=== PATIENT | female | born 1970 | race Caucasian/White ===

== ENCOUNTER 2017-12-26 09:32 | Outpatient (CLI) | payer OTHER ==
[~2017-12-26 09:32] MED LIST: ALBUTEROL17 GM IH; HYZAAR 100-251 UDTAB; HYZAAR 100/25 T1 TAB PO; SINGULAIR10 MG PO
== END 2017-12-26 11:55 | disposition home or self-care (01) ==
LOC: MRI 09:32
DX: M75.122 Complete rotator cuff tear or rupture of left shoulder, not specified as traumatic (principal)
CPT/HCPCS: 73221

== ENCOUNTER 2018-03-21 08:19 | Outpatient (CLI) | payer OTHER | END 2018-03-21 08:40 | disposition home or self-care (01) | LOC: RAD 08:19 | DX: M19.012 Primary osteoarthritis, left shoulder (principal) ==

== ENCOUNTER 2018-08-15 15:26 | Emergency (ER) | payer OTHER ==
[~2018-08-15] VITALS: Ht 175.3 cm; Wt 127.0 kg
[2018-08-15] MEDS ORDERED: CYTOMEL25 MCG (16:11)
[2018-08-15] MEDS ORDERED: SYNTHROID200 MCG (16:11)
[2018-08-15] MEDS ORDERED: NORVASC5 MG (16:11)
[2018-08-15] MEDS ORDERED: ZANAFLEX4 M1 (16:12)
[2018-08-15] MEDS ORDERED: GABAPENTIN100 MG (16:12)
[2018-08-15] MEDS ORDERED: AMITRIPTYLINE100 MG (16:12)
== END 2018-08-15 20:54 | disposition home or self-care (01) ==
LOC: ER 15:26
DX: R51 Headache (principal)

== ENCOUNTER 2019-08-16 14:12 | Outpatient (CLI) | payer OTHER ==
[~2019-08-16 14:12] MED LIST changes: +AMITRIPTYLINE100 MG; +CYTOMEL25 MCG; +GABAPENTIN100 MG; +NORVASC5 MG; +SYNTHROID200 MCG; +ZANAFLEX4 M1
== END 2019-08-16 14:54 | disposition home or self-care (01) ==
LOC: SONOGRAMA 14:12
DX: E04.2 Nontoxic multinodular goiter (principal)

== ENCOUNTER → 2019-09-11 | Emergency (ER) | payer OTHER ==
[~2019-09-11] VITALS: Ht 175.3 cm; Wt 113.4 kg
[~2019-09-11] MED LIST changes: +ONDANSETRON ODT8 MG PO; +ZANTAC300 MG PO
== END | disposition home or self-care (01) ==
LOC: ER 23:42
DX: K52.9 Noninfective gastroenteritis and colitis, unspecified (principal)

== ENCOUNTER 2019-11-10 18:16 | Emergency (ER) | payer OTHER ==
[~2019-11-10] VITALS: Ht 175.3 cm; Wt 113.4 kg
[2019-11-10] MEDS ORDERED: VASOTEC2.5 MG (18:39)
[2019-11-10] MEDS ORDERED: SYNTHROID50 MCG (18:41)
== END 2019-11-10 21:42 | disposition home or self-care (01) ==
LOC: ER 18:16
DX: S90.32XA Contusion of left foot, initial encounter (principal); S90.122A Contusion of left lesser toe(s) without damage to nail, initial encounter; W18.09XA Striking against other object with subsequent fall, initial encounter; Y93.89 Activity, other specified; Y92.098 Other place in other non-institutional residence as the place of occurrence of the external cause; Y99.8 Other external cause status

== ENCOUNTER 2020-01-19 23:32 | Emergency (ER) | payer OTHER ==
[~2020-01-19] VITALS: Ht 175.3 cm; Wt 117.9 kg
[~2020-01-19 23:32] MED LIST changes: +SYNTHROID50 MCG; +VASOTEC2.5 MG
[2020-01-20] MEDS ORDERED: KEFLEX500 MG PO (02:50)
[2020-01-20] MEDS ORDERED: MUPIROCIN22 GM TOP ×2 (02:50→02:51)
[2020-01-20] MEDS ORDERED: MOBIC15 MG PO ×2 (02:50→02:51)
== END 2020-01-20 03:00 | disposition home or self-care (01) ==
LOC: ER 23:32
DX: S80.12XA Contusion of left lower leg, initial encounter (principal); S90.32XA Contusion of left foot, initial encounter; W18.39XA Other fall on same level, initial encounter; Y93.89 Activity, other specified; Y92.488 Other paved roadways as the place of occurrence of the external cause; Y99.8 Other external cause status